=== PATIENT | female | born 1995 | race Caucasian/White ===

== ENCOUNTER 2022-06-23 16:36 | Emergency (ER) | payer OTHER ==
[~2022-06-23] VITALS: Ht 154.9 cm; Wt 147.0 kg
[2022-06-23] MEDS ORDERED: METFORMIN HCL500 MG (17:14)
[2022-06-23] MEDS ORDERED: ONDANSETRON ODT8 MG PO (18:51)
== END 2022-06-23 19:13 | disposition home or self-care (01) ==
LOC: ED 16:36
DX: R10.84 Generalized abdominal pain (principal); R11.2 Nausea with vomiting, unspecified; E11.9 Type 2 diabetes mellitus without complications; Z79.84 Long term (current) use of oral hypoglycemic drugs
CPT/HCPCS: 36415; 74177; 80053; 81003; 83690; 84703; 85025; 96361; 99284-25; A9270; J2405; J7030

== ENCOUNTER 2022-10-22 08:18 | Emergency (ER) | payer OTHER ==
[~2022-10-22] VITALS: Ht 154.9 cm; Wt 133.5 kg
--- OUTSIDE RECORDS SUMMARY | ~2022-10-22 | XMS | Continuity of Care Document ---
Demographics + + + | Address | [facility] 1990 | | | [place] [address] | + + + | Preferred Language | Unknown | + + + | Marital Status | | + + + | Mormonism Affiliation | Unknown | + + + | Race | White | + + + | Ethnic Group | Not or | + + + Author + + + | Author | [place] | + + + | Organization | [place] | + + + | Address | [address] | | | [place] [address] | + + + | Phone | | + + + Care Team Providers + + + + | Care Engraving Supervisor Name | Role | Phone | + + + + Unavailable | Unavailable | + + + + Unavailable | Unavailable | + + + + Allergies No information. Encounters No information. Functional Status No information. Immunizations No information. Medications + + + + | date | description | facility | + + + + | 2022-06-23 00:00 | [facility] | [facility] | + + + + | 2022-06-23 00:00 | [facility] | [facility] | + + + + Problems No information. Procedures No information. Results/Labs +--------+--------+ +---------+--------+---------+ | test | date | facility | value | unit | notes | +--------+--------+ +---------+--------+---------+ + + | Result panel 1 | + + + + + +--------+ + + | | 2022-06-23 | [facility] | 15.4 | (missing) | (missing) | | (unavailable | [facility] | | | + + + +--------+ + + + + | Result panel 2 | + + + + + +--------+ + + | | 2022-06-23 | [facility] | 85.7 | (missing) | (missing) | | (unavailable | [facility] | | | | + + + +--------+ + + + + | Result panel 3 | + + + + + +-------+ + + | | 2022-06-23 | [facility] | 9.5 | (missing) | (missing) | | (unavailable | [facility] | | | | + + + +-------+ + + + + | Result panel 4 | + + + + + +-------+ + + | | 2022-06-23 | [facility] | 3.9 | (missing) | (missing) | | (unavailable | [facility] | | | | + + + +-------+ + + + + | Result panel 5 | + + + + + +-------+ + + | | 2022-06-23 | [facility] | 0.5 | (missing) | (missing) | | (unavailable | [facility] | | | | + + + +-------+ + + + + | Result panel 6 | + + + + + +-------+ + + | | 2022-06-23 | [facility] | 0.4 | (missing) | (missing) | | (unavailable | [facility] | | | | + + + +-------+ + + + + | Result panel 7 | + + + + + + + + + | | 2022-06-23 | [facility] | YELLOW | (missing) | (missing) | | (unavailable | [facility] | | | | + + + + + + + + + | Result panel 8 | + + + + + +---------+ + + | | 2022-06-23 | [facility] | CLEAR | (missing) | (missing) | | (unavailable | [facility] | | | + + + +---------+ + + + + | Result panel 9 | + + + + + +---------+ + + | | 2022-06-23 | [facility] | LARGE | (missing) | (missing) | | (unavailable | 17::07 [facility] | | | | + + + +---------+ + + + + | Result panel 10 | + + + + + + + + + | | 2022-06-23 | [facility] | NEGATIVE | (missing) | (missing) | | (unavailable | 17::07 [facility] | | | | + + + + + + + + + | Result panel 11 | + + + + + +---------+ + + | | 2022-06-23 | [facility] | SMALL | (missing) | (missing) | | (unavailable | [facility] | | | | + + + +---------+ + + + + | Result panel 12 | + + + + + +--------+ + + | | 2022-06-23 | [facility] | 5.24 | (missing) | (missing) | | (unavailable | [facility]07 [facility] | | | | + + + +--------+ + + + + | Result panel 13 | + + + + + +---------+ + + | | 2022-06-23 | [facility] | 1.025 | (missing) | (missing) | | (unavailable | [facility]07 [facility] | | | | + + + +---------+ + + + + | Result panel 14 | + + + + + + + + + | | 2022-06-23 | [facility] | NEGATIVE | (missing) | (missing) | | (unavailable | [facility]20[facility]07 [facility] | | | | + + + + + + + + + | Result panel 15 | + + + + + +-------+ + + | | 2022-06-23 | [facility] | 5.5 | (missing) | (missing) | | (unavailable | [facility]20[facility]07 [facility] | | | | + + + +-------+ + + + + | Result panel 16 | + + + + + + + + + | | 2022-06-23 | [facility] | NEGATIVE | (missing) | (missing) | | (unavailable | [facility]20:07 [facility] | | | + + + + + + + + + | Result panel 17 | + + + + + + + + + | | 2022-06-23 | [facility] | NORMAL | (missing) | (missing) | | (unavailable | [facility] | | | | + + + + + + + + + | Result panel 18 | + + + + + + + + + | | 2022-06-23 | [facility] | NEGATIVE | (missing) | (missing) | | (unavailable | :07 [facility] | | | | + + + + + + + + + | Result panel 19 | + + + + + + + + + | | 2022-06-23 | [facility] | NEGATIVE | (missing) | (missing) | | (unavailable | [facility]07 [facility] | | | | + + + + + + + + + | Result panel 20 | + + + + + +-------+---------+ + | | 2022-06-23 | [facility] | 291 | mg/dL | (missing) | | (unavailable | [facility]20:07 [facility] | | | | + + + +-------+---------+ + + + | Result panel 21 | + + + + + +------+---------+ + | | 2022-06-23 | [facility] | 10 | mg/dL | (missing) | | (unavailable | [facility]20:07 [facility] | | | + + + +------+---------+ + + + | Result panel 22 | + + + + + +--------+---------+ + | | 2022-06-23 | [facility] | 0.81 | mg/dL | (missing) | | (unavailable | [facility]20:07 [facility] | | | + + + +--------+---------+ + + + | Result panel 23 | + + + + + +--------+ + + | | 2022-06-23 | [facility] | 13.1 | (missing) | (missing) | | (unavailable | [facility]07 [facility] | | | + + + +--------+ + + + + | Result panel 24 | + + + + + +-------+ + + | | 2022-06-23 | [facility] | 101 | (missing) | (missing) | | (unavailable | [facility]20:07 [facility] | | | + + + +-------+ + + + + | Result panel 25 | + + + + + +---------+ + + | | 2022-06-23 | [facility] | 12.34 | (missing) | (missing) | | (unavailable | [facility]07 [facility] | | | + + + +---------+ + + + + | Result panel 26 | + + + + + +-------+ + + | | 2022-06-23 | [facility] | 138 | (missing) | (missing) | | (unavailable | [facility]20:07 [facility] | | | + + + +-------+ + + + + | Result panel 27 | + + + + + +-------+ + + | | 2022-06-23 | [facility] | 4.0 | (missing) | (missing) | | (unavailable | [facility]07 [facility] | | | + + + +-------+ + + + + | Result panel 28 | + + + + + +-------+ + + | | 2022-06-23 | [facility] | 101 | (missing) | (missing) | | (unavailable | [facility]20[facility]07 [facility] | | | + + + +-------+ + + + + | Result panel 29 | + + + + + +------+ + + | | 2022-06-23 | [facility] | 25 | (missing) | (missing) | | (unavailable | [facility]20[facility]07 [facility] | | | + + + +------+ + + + + | Result panel 30 | + + + + + +--------+ + + | | 2022-06-23 | [facility] | 16.0 | (missing) | (missing) | | (unavailable | [facility]07 [facility] | | | + + + +--------+ + + + + | Result panel 31 | + + + + + +-------+---------+ + | | 2022-06-23 | [facility] | 8.6 | mg/dL | (missing) | | (unavailable | [facility]07 [facility] | | | + + + +-------+---------+ + + + | Result panel 32 | + + + + + +-------+ + + | | 2022-06-23 | [facility] | 7.6 | (missing) | (missing) | | (unavailable | [facility]07 [facility] | | | + + + +-------+ + + + + | Result panel 33 | + + + + + +-------+ + + | | 2022-06-23 | [facility] | 3.3 | (missing) | (missing) | | (unavailable | 17: [facility] | | | + + + +-------+ + + + + | Result panel 34 | + + + + + +--------+ + + | | 2022-06-23 | [facility] | 41.2 | (missing) | (missing) | | (unavailable | [facility] | | | | + + + +--------+ + + + + | Result panel 35 | + + + + + +-------+ + + | | 2022-06-23 | [facility] | 4.3 | (missing) | (missing) | | (unavailable | [facility] | | | + + + +-------+ + + + + | Result panel 36 | + + + + + +--------+ + + | | 2022-06-23 | [facility] | 0.77 | (missing) | (missing) | | (unavailable | [facility] | | | + + + +--------+ + + + + | Result panel 37 | + + + + + +-------+ + + | | 2022-06-23 | [facility] | 0.7 | (missing) | (missing) | | (unavailable | [facility]07 [facility] | | | + + + +-------+ + + + + | Result panel 38 | + + + + + +------+ + + | | 2022-06-23 | [facility] | 24 | (missing) | (missing) | | (unavailable | [facility]07 [facility] | | | | + + + +------+ + + + + | Result panel 39 | + + + + + +------+ + + | | 2022-06-23 | [facility] | 31 | (missing) | (missing) | | (unavailable | [facility]07 [facility] | | | | + + + +------+ + + + + | Result panel 40 | + + + + + +------+ + + | | 2022-06-23 | [facility] | 89 | (missing) | (missing) | | (unavailable | [facility]20:07 [facility] | | | | + + + +------+ + + + + | Result panel 41 | + + + + + +------+ + + | | 2022-06-23 | [facility] | 79 | (missing) | (missing) | | (unavailable | [facility]20:07 [facility] | | | | + + + +------+ + + + + | Result panel 42 | + + + + + + + + + | | 2022-06-23 | [facility] | NEGATIVE | (missing) | (missing) | | (unavailable | [facility]07 [facility] | | | + + + + + + + + + | Result panel 43 | + + + + + +--------+ + + | | 2022-06-23 | [facility] | 78.7 | (missing) | (missing) | | (unavailable | [facility]20:07 [facility] | | | | + + + +--------+ + + + + | Result panel 44 | + + + + + +--------+ + + | | 2022-06-23 | [facility] | 25.1 | (missing) | (missing) | | (unavailable | : [facility] | | | | + + + +--------+ + + + + | Result panel 45 | + + + + + +--------+ + + | | 2022-06-23 | [facility] | 31.9 | (missing) | (missing) | | (unavailable | [facility] | | | + + + +--------+ + + + + | Result panel 46 | + + + + + +--------+ + + | | 2022-06-23 | [facility] | 15.4 | (missing) | (missing) | | (unavailable | :: [facility] | | | | + + + +--------+ + + + + | Result panel 47 | + + + + + +-------+ + + | | 2022-06-23 | [facility] | 270 | (missing) | (missing) | | (unavailable | [facility]::07 [facility] | | | + + + +-------+ + + Social History + + + + | date | description | facility | + + + + | 2022-06-23 00:00 | Unknown if ever smoked | [facility] | + + + + Vital Signs + + + +---------+ | date | measurement | value | units | + + + +---------+ | 2022-06-23 00:00 | BMI | 61.2 | kg/m2 | + + + +---------+ | 2022-06-23 00:00 | BP_diastolic | 74 | mmHg | + + + +---------+ | 2022-06-23 00:00 | BP_systolic | 133 | mmHg | + + + +---------+ | 2022-06-23 00:00 | heart_rate | 95 | /min | + + + +---------+ | 2022-06-23 00:00 | height_metric | 154.94 | cm | + + + +---------+ | 2022-06-23 00:00 | height_standard | 61 | in | + + + +---------+ | 2022-06-23 00:00 | o2_saturation | 100 | % | + + + +---------+ | 2022-06-23 00:00 | respiration_rate | 16 | /min | + + + +---------+ | 2022-06-23 00:00 | temperature_metric | 36.89 | C | | | | | | + + + +---------+ | 2022-06-23 00:00 | | 98.4 | F | | | temperature_standar | | | | | d | | | + + + +---------+ | 2022-06-23 00:00 | weight_metric | 146.96 | kg | + + + +---------+ | 2022-06-23 00:00 | weight_standard | 323.99 | lb | + + + +---------+ | 2022-06-23 00:00 | weight_standard | 324 | lb | + + + +---------+"
--- OUTSIDE RECORDS SUMMARY | ~2022-10-22 | XMS | Continuity of Care Document ---
Demographics + + + | Address | [facility] 1990 | | | [place] [address] | + + + | Preferred Language | Unknown | + + + | Marital Status | | + + + | Roman Catholic Affiliation | Unknown | + + + | Race | White | + + + | Ethnic Group | Not or | + + + Author + + + | Author | [facility] | + + + | Organization | [facility] | + + + | Address | [address] | | | [place] [address] | + + + | Phone | | + + + Care Team Providers + + + + | Care Candles Pourer Name | Role | Phone | + + + + Unavailable | Unavailable | + + + + Unavailable | Unavailable | + + + + Allergies No information. Encounters No information. Functional Status No information. Immunizations No information. Medications + + + + | date | description | facility | + + + + | 2022-06-23 00:00 | [facility] | [facility] | + + + + | 2022-06-23 00:00 | [facility] | [facility] | + + + + Problems No [...] (missing) | | (unavailable | 17:20:07 | [facility] | | | | | ) | [...] (missing) | | (unavailable | 17: | [facility] | | | | | ) | [...] | Unknown if ever smoked | [facility] | + + + + [...]
[~2022-10-22 08:18] MED LIST: METFORMIN HCL500 MG; ONDANSETRON ODT8 MG PO
[2022-10-22] MEDS ORDERED: TRAMADOL HCL50 MG PO (10:29)
[2022-10-22] MEDS ORDERED: ONDANSETRON ODT8 MG PO (10:29)
[2022-10-22 10:58] VITALS: BP 153/78
== END 2022-10-22 10:58 | disposition home or self-care (01) ==
LOC: ED 08:18
DX: K52.9 Noninfective gastroenteritis and colitis, unspecified (principal); E11.65 Type 2 diabetes mellitus with hyperglycemia
CPT/HCPCS: 36415; 74177; 80053; 83690; 84703; 85025; 96375; 99284 25; J1815; J2270; J2405; J7030; Q9967

== ENCOUNTER 2023-01-18 02:19 | Emergency (ER) | payer OTHER ==
[~2023-01-18] VITALS: Ht 154.9 cm; Wt 128.4 kg
[~2023-01-18 02:19] MED LIST changes: +OMEPRAZOLE20 MG PO; +TRAMADOL HCL50 MG PO
--- OUTSIDE RECORDS SUMMARY | 2023-01-18 02:24 | XMS ---
PreManage Notification: SYLWIA LY Security Marketing Services Manager Events No recent Security Events currently on file CRITERIA MET - 6 ED Visits in 6 Months - [facility] - 2 Visits in 30 Days - [facility] - 3 Facilities in 90 Days CARE PROVIDERS -, Negar- Dentist: Microelectronics Engineer [facility] PHONE: [phone] Gwen Gilbert Nurse Practitioner: Family Current PHONE: [phone] Susan has no Care Guidelines for this patient. E.D. VISIT COUNT (12 MO.) 4 [facility] [address] [facility] TOTAL 7 NOTE: Visits indicate total known visits. ED/UCC VISIT TRACKING (12 MO.) 01/18/2023 02:20 [facility] [place] TYPE: Emergency COMPLAINT: - ABDOMINAL PAIN 01/17/2023 07:25 [facility] [place] TYPE: Emergency COMPLAINT: - ABD PAIN 10/26/2022 04:44 [facility] TYPE: Emergency DIAGNOSES: - Cannabis abuse, uncomplicated - Dehydration - Essential (primary) hypertension - Nausea with vomiting, unspecified - Type 2 diabetes mellitus without complications 10/24/2022 19:50 [facility] TYPE: Emergency DIAGNOSES: - Nausea with vomiting, unspecified - Unspecified abdominal pain - Emesis - syncope 10/24/2022 18:28 [facility] TYPE: Emergency DIAGNOSES: - Abdominal Pain 10/22/2022 08:19 [facility] TYPE: Emergency COMPLAINT: - ABD PAIN, VOMITING DIAGNOSES: - Noninfective gastroenteritis and colitis, unspecified - Type 2 diabetes mellitus with hyperglycemia - Vomiting, unspecified 06/23/2022 16:[address] [facility] [place] TYPE: Emergency COMPLAINT: - DIABETIC ISSUE, VOMITING DIAGNOSES: - Generalized abdominal pain - custodial (current) use of oral hypoglycemic drugs - Nausea with vomiting, unspecified - Type 2 diabetes mellitus without complications - Unspecified abdominal pain INPATIENT VISIT TRACKING (12 MO.) No inpatient visits to display in this time frame [email or web address]
[2023-01-18 03:04] LABS: BASOPHILS 0.4 % (0-2); EOSINOPHILS 0.4 % (0-6); HEMATOCRIT 41.8 % (35.0-50.0); HEMOGLOBIN 13.9 g/dL (12.0-18.0); LYMPHOCYTES 18.1 % (24-44); MCH 26.5 (27-36); MCHC 33.2 g/dl (30-36); NEUTROPHILS 76.1 % (39-80); PLATELET COUNT 283 K/uL (140-440); RBC 5.23 M/ul (4.3-5.7); RDW 15.2 (10.5-15.0)
[2023-01-18 03:09] LABS: ANION GAP 15.9 (7-21); BILIRUBIN, TOTAL 0.9 ng/dL (0.2-1.0); BUN/CREATININE RATIO 5.49 (6.0-28.6); CALCIUM 9.2 mg/dL (8.5-10.1); CREATININE, SERUM 0.91 mg/dL (0.55-1.02); POTASSIUM 3.9 mmol/L (3.5-5.1)
[2023-01-18] MEDS ORDERED: ONDANSETRON ODT8 MG PO (03:32)
[2023-01-18 04:34] VITALS: BP 147/97
== END 2023-01-18 04:34 | disposition home or self-care (01) ==
LOC: ED 02:19
PROVIDERS: Emergency Medicine
DX: R11.15 Cyclical vomiting syndrome unrelated to migraine (principal); D72.829 Elevated white blood cell count, unspecified; R10.817 Generalized abdominal tenderness; Z79.899 Other long term (current) drug therapy
CPT/HCPCS: 36415; 80053; 83690; 85025; A9270; J2405; J7030